=== PATIENT | male | born 1985 | race Caucasian/White ===

== ENCOUNTER 2018-09-07 08:23 | Outpatient (CLI) | payer BC ==
--- NOTE | 2018-09-07 10:29 | MRI ---
MRI LUMBAR SPINE WITHOUT CONTRAST: HISTORY: Chronic low back pain. FINDINGS: The vertebral body heights and marrow signal are maintained. There is a focal area of increased T1 a nd T2 signal, consistent with hemangioma, in the L3 vertebral body. The conus medullaris ends at the L1 level. There is a right foraminal disk protrusion at the L3-L4 with neural foraminal stenosis an d probable impingement of the exiting nerve root. There is also a right-sided broad-based disk bulge at the L4-L5 level with mild neural foraminal stenosis. No significant central canal stenosis is se en. The paraspinal musculature is normal. IMPRESSION: 1. Right foraminal disk protrusion at the L3-L4 level, with neural foraminal stenosis and probable i mpingement of the exiting nerve root. 2. Mild right neural foraminal stenosis at the L4-L5 level. POS: OFF
== END 2018-09-07 08:24 | disposition home or self-care (01) ==
LOC: SCSMRI 08:23
PROVIDERS: ATTEND Family Medicine
DX: M51.16 Intervertebral disc disorders with radiculopathy, lumbar region (principal); M54.5 Low back pain; G89.29 Other chronic pain; M48.061 Spinal stenosis, lumbar region without neurogenic claudication
CPT/HCPCS: 72148

== ENCOUNTER 2018-09-21 13:28 | Outpatient (CLI) | payer BC ==
--- NOTE | 2018-09-21 13:55 | RAD ---
LUMBAR SPINE SERIES 3 VIEWS: Date: 09/21/18 HISTORY: Low back pain. FINDINGS: Vertebral bodies are normal in height. Degenerative osteophytes are seen along the course of the spin e. there is moderate disc narrowing at L5-S1. IMPRESSION: Degenerative changes of the spine with some moderate disc narrowing at the L5-S1 level. No abnormal m otion seen on the flexion or extension views. POS: [facility]
== END 2018-09-21 13:29 | disposition home or self-care (01) ==
LOC: TBSIIMAG 13:28
PROVIDERS: ATTEND Neurological Surgery
DX: M51.26 Other intervertebral disc displacement, lumbar region (principal); M54.2 Cervicalgia; M47.816 Spondylosis without myelopathy or radiculopathy, lumbar region; M51.37 Other intervertebral disc degeneration, lumbosacral region
CPT/HCPCS: 72100